=== PATIENT | female | born 1945 | race Two or more races ===

== ENCOUNTER 2023-12-18 23:22 | Inpatient (IN) | payer OTHER, MEDICAID ==
[~2023-12-18] VITALS: Ht 162.6 cm; Wt 53.9 kg
[2023-12-19] VITALS (8 sets, daily range): BP systolic 101–113; BP diastolic 56–68; PULSE 76–96; RESP 15–20; TEMP 97.2–98.4; O2SAT 93–97
[2023-12-19] MEDS ORDERED: ONDANSETRON HCL 4 MG/2 ML VIAL IV PRN (01:30)
[2023-12-19] MEDS ORDERED: ACETAMINOPHEN 325 MG TAB PO PRN (01:30)
[2023-12-19] MEDS ORDERED: ATOR10TA52 PO (01:35)
[2023-12-19] MEDS ORDERED: METF-372 PO (01:35)
[2023-12-19] MEDS ORDERED: DEXTROSE (50%) 50ML SYRG IV PRN (02:15)
[2023-12-19 05:53] LABS: Basophils # (auto) 0 10 ^3/uL (0-0.2); Basophils % (auto) 0.6 % (0.0-2.0); Eosinophils # (auto) 0.1 10 ^3/uL (0-0.8); Eosinophils % (auto) 3.7 % (0.0-7.0); Hematocrit 35.2 % (36.0-46.0); Hemoglobin 11.5 g/dL (12.2-16.2); Lymphocytes # (auto) 1.2 10 ^3/uL (0.4-5.4); Lymphocytes % (auto) 29.8 % (10.0-50.0); Mean Corpuscular Hemoglobin 28.4 pg (28.0-32.0); Mean Corpuscular Hgb Conc. 32.8 g/dL (32.0-36.0); Mean Corpuscular Volume 86.6 fL (80.0-100.0); Monocytes # (auto) 0.5 10 ^3/uL (0-1.3); Monocytes % (auto) 11.6 % (0.0-12.0); Neutrophils # (auto) 2.2 10 ^3/uL (1.6-8.6); Neutrophils % (auto) 54.3 % (37.0-80.0); Red Blood Cells 4.07 10^6/uL (4.0-5.20); Red Cell Distribution Width 14.5 % (11.8-14.3); White Blood Cell 4.1 10^3/uL (4.4-10.8)
[2023-12-19 05:57] LABS: Anion Gap 5 (5-15); Carbon Dioxide 28 mmol/L (20-30); Chloride 106 mmol/L (98-107); Potassium 3.7 mmol/L (3.5-5.1); Sodium 139 mmol/L (136-145)
[2023-12-19 05:58] LABS: Calcium 9.3 mg/dL (8.5-10.1)
[2023-12-19 06:03] LABS: BUN/Creatinine Ratio 15.4 (10.0-20.0); Blood Urea Nitrogen 10 mg/dL (9-23); Glucose 168 mg/dL (74-106); Triglycerides 80 mg/dL (< 150)
[2023-12-19 06:04] LABS: LDL Cholesterol 70 mg/dL (< 100)
[2023-12-19 06:05] LABS: Cholesterol 146 mg/dL (< 200); HDL Cholesterol 64 mg/dL (40-59)
[2023-12-19] MEDS: ACCU-CHEK COMFORT CURVE STRIP VI SCH ×4 (06:24→21:25)
[2023-12-19] MEDS: InsuLIN REG 1unit/0.01ml Soln (100units/ml) SC SCH ×4 (06:25→21:27)
[2023-12-19] MEDS ORDERED: PANTOPRAZOLE 40 MG/10 ML VIAL INJ IV SCH (10:00)
[2023-12-19] MEDS: ASPirin 81 mg TAB PO SCH (10:08)
[2023-12-19] MEDS: cefTRIAXone 1GM/50ML D5W 50 ML IV SCH (10:09)
[2023-12-19 21:22] LABS: Urine Bacteria NONE SEEN /hpf (None Seen); Urine Blood Negative /uL (Negative); Urine Clarity Clear (Clear); Urine Color Yellow (Yellow); Urine Protein, UAD Negative (Negative); Urine Urobilinogen Normal (Negative); Urine WBC 40 /hpf (0 - 5); Urine pH 7.5 (5.0-8.0)
[2023-12-19] MEDS ORDERED: ATORVASTATIN 20 MG TAB PO SCH (22:00)
[2023-12-20 05:00] VITALS: BP 119/76; PULSE 86; RESP 16; TEMP 98; O2SAT 94
[2023-12-20] MEDS: InsuLIN REG 1unit/0.01ml Soln (100units/ml) SC SCH ×2 (06:15→11:30)
[2023-12-20] MEDS: ACCU-CHEK COMFORT CURVE STRIP VI SCH ×2 (06:15→11:30)
[2023-12-20 08:00] VITALS: BP 117/74; PULSE 78; PULSE 84; RESP 16; TEMP 98; O2SAT 95
[2023-12-20 09:00] VITALS: BP 117/74; PULSE 78; RESP 16; TEMP 98; O2SAT 95
[2023-12-20] MEDS: cefTRIAXone 1GM/50ML D5W 50 ML IV SCH (09:10)
[2023-12-20] MEDS: ASPirin 81 mg TAB PO SCH (09:10)
[2023-12-20] MEDS ORDERED: CIPR-173 PO (12:01)
[2023-12-20] MEDS ORDERED: ASPI-325 PO (12:01)
[2023-12-20 13:00] VITALS: BP 103/57; PULSE 82; RESP 18; TEMP 98.6; O2SAT 93
[2023-12-20 13:14] VITALS: BP 103/57; PULSE 82; TEMP 36.7; O2SAT 93
== END 2023-12-20 14:40 | disposition home or self-care (01) | DRG 69 ==
LOC: TELE-DOU 12-19 01:06 → UNDOADMIN 12-19 01:06 → TELE-DOU 12-19 01:23 → TELE-EAST 12-19 05:03
PROVIDERS: ADMIT Nurse Practitioner Family; ATTEND Nurse Practitioner Family
DX: G45.9 Transient cerebral ischemic attack, unspecified (principal); N39.0 Urinary tract infection, site not specified; E78.5 Hyperlipidemia, unspecified; E11.9 Type 2 diabetes mellitus without complications; I10 Essential (primary) hypertension; Z79.84 Long term (current) use of oral hypoglycemic drugs; Z87.891 Personal history of nicotine dependence; Z79.899 Other long term (current) drug therapy
CPT/HCPCS: 36415; 70551; 80048; 80061; 81001; 82962; 83036; 85025; 87040; 87086; 93306; 97163; C9113; G0378; J1815